=== PATIENT | female | born 1965 | race Caucasian/White ===

== ENCOUNTER 2018-11-09 14:07 | Emergency (ER) | payer SELFPAY ==
[~2018-11-09] VITALS: Ht 162.6 cm; Wt 91.0 kg
[2018-11-09] MEDS ORDERED: HYDROCODONE/ACETAMINOPHEN 5/325MG TABLET PO ONE (15:30)
[2018-11-09] MEDS ORDERED: IBUPROFEN 600MG TABLET PO ONE (17:00)
[2018-11-09 17:12] VITALS: BP 184/98
== END 2018-11-09 17:22 | disposition home or self-care (01) ==
LOC: ER 14:07
DX: S40.011A Contusion of right shoulder, initial encounter (principal); T14.8XXA Other injury of unspecified body region, initial encounter; S60.412A Abrasion of right middle finger, initial encounter; S30.0XXA Contusion of lower back and pelvis, initial encounter; M54.2 Cervicalgia; I10 Essential (primary) hypertension; E11.9 Type 2 diabetes mellitus without complications; V43.52XA Car driver injured in collision with other type car in traffic accident, initial encounter; Y93.89 Activity, other specified; Y92.488 Other paved roadways as the place of occurrence of the external cause
CPT/HCPCS: 73030; 73140; 74176; 99284